=== PATIENT | male | born 1965 | race Caucasian/White ===

== ENCOUNTER 2019-01-22 19:31 | Inpatient (IN) | payer MEDICARE ==
[2019-01-22] MEDS ORDERED: Magnesium Hydroxide (MOM) 30 mL UDC PO PRN (20:53)
[2019-01-22] MEDS ORDERED: GLUCAGON HCl 1 MG KIT IM PRN (21:56)
[2019-01-22] MEDS ORDERED: Dextrose 50% 50 mL Abboject IVP PRN (21:56)
[2019-01-22 22:40] VITALS: BP 148/95
[2019-01-23] MEDS: INSULIN LISPRO SLIDING SCALE 100 UNITS/ML UNIT SUBQ SCH ×4 (06:33→20:51)
[2019-01-23 07:16] LABS: CHOLESTEROL 194 mg/dL (<200); HDL -HIGH DENSITY LIPOPROTEIN 37 mg/dL (23-92); TRIGLYCERIDES 142 mg/dL (<150)
[2019-01-23] MEDS: Multivitamin Tab PO SCH (10:01)
--- NOTE | 2019-01-23 18:34 | History & Physical ---
ADMIT DATE: 01/22/2019 MEDICAL H AND P PATIENT'S IDENTIFICATION: A 53-year-old male. REQUESTING PHYSICIAN: Dr. Abdiaziz Mancera HISTORY OF PRESENT ILLNESS: A 53-year-old male who was admitted from [facility] to [facility] after he presented to Emergency Room for depression with suicidal ideation. PAST MEDICAL HISTORY: Remarkable for: 1. Diabetes mellitus. 2. DJD. 3. Depression. 4. Hypertension. MEDICATIONS: Currently the patient is taking Tylenol, dextrose, Lexapro, glucagon, sliding scale insulin, milk of magnesia, Ambien, multivitamin. ALLERGIES: The patient is not allergic to any medication. SOCIAL HISTORY: The patient is homeless. The patient is still smoking cigarette, alcohol and previous drug use. FAMILY MEDICAL HISTORY: Remarkable for diabetes mellitus. REVIEW OF SYSTEMS: The patient currently denies any headache, blurred vision, double vision, dysphagia, odynophagia, runny nose, stuffy nose, fever, chills, cough, chest pain, shortness of breath, palpitation, dizziness, nausea, vomiting, diarrhea, dysuria, hematuria, hematochezia, and melena. No history of any seizure or syncopal episode. PHYSICAL EXAMINATION: GENERAL: The patient is alert, awake, oriented, lying in the bed without any acute distress. VITAL SIGNS: Temperature 97.8, pulse is 74, respiratory rate is 18, blood pressure 174/100. HEENT: Normocephalic, atraumatic. Extraocular muscles are intact. Tongue more pink and coated. Poor dentition noted. No oral lesion. No exudate. No sinus tenderness. NECK: Supple, no JVD, no hepatojugular reflex. No lymphadenopathy, thyromegaly, or carotid bruit. HEART: Both heart sounds are regular. No S3. No S4. No murmur. CHEST AND LUNGS: Equal in expansion. No expiratory wheezing. ABDOMEN: Soft. No guarding. No rigidity. Liver, spleen not palpable. No palpable mass. EXTREMITIES: No edema. No cyanosis. NEUROLOGIC: Alert, awake, and oriented to time, place, person. 2-12 cranial nerves are intact. Power in upper and lower extremities 5+. Sensation to touch intact. Babinskis in both toes are going down. No cerebral sign. AVAILABLE DIAGNOSTIC DATA: Has been reviewed. CLINICAL IMPRESSION: 1. Diabetes mellitus. 2. Hypertension. 3. Depression. 4. Psychotic disorder. 5. Degenerative joint disease. PLAN: The patient will be placed on metformin 500 mg b.i.d. along with Januvia 100 mg daily. The patient will be placed on losartan for hypertension. We will continue to monitor blood sugar 4 times a day and use sliding scale insulin, glycohemoglobin A1c will be checked as well and we will continue to follow this patient during his stay in the hospital. Psychotic evaluation and management is deferred to psychiatrist. I sincerely thank you Dr. Abdiaziz Mancera for giving me the opportunity to participate in the patient of yours. JOB# [id number]
--- NOTE | 2019-01-23 20:03 | Psychiatric Evaluation ---
DATE OF SERVICE: INITIAL EVALUATION AND MENTAL STATUS EXAM PATIENT'S AGE: 53. SEX: Male. PHYSICIAN: Dr. Mancera. CHIEF COMPLAINT: Suicidal ideations. HISTORY OF PRESENT ILLNESS: The patient is a 53-year-old male, who has been under my care in [facility]. I sent the patient from the Emergency Room because of the patient having suicidal ideation with no specific plans. The patient said that he has been feeling hopeless and helpless and has been hearing voices telling him to kill himself. The patient also has been anxious and nervous and has been having lack of motivations and lack of energy. He also has been abusing methamphetamines and drinking alcohol. PAST PSYCHIATRIC HISTORY: Multiple psychiatric hospitalizations to [facility] under my self-care. PAST MEDICAL HISTORY: The patient has diabetes mellitus and chronic obstructive pulmonary disease. SOCIAL HISTORY: The patient is homeless. He is single, never , and has no children. He abuses methamphetamine and alcohol. He denies legal issues and denies abuse issues. ALLERGIES: No known allergies. MENTAL STATUS EXAMINATION: The patient appears older than his stated age. Disheveled. Anxious. Irritable mood. Sad affect. Thought processes are mainly goal directed. The patient admits to auditory hallucinations, but denies visual hallucinations. The patient admits to be paranoid. The patient admits to suicidal ideations, but denies homicidal ideations. The patient is alert and oriented to time, place, person, and situation. Intact immediate, recent and remote memories. Fair insight and fair judgment. Seems to be of average intelligence based on his verbal ability. ASSESSMENT: PRIMARY DIAGNOSIS: Major depression, severe, recurrent, with psychotic features. SECONDARY DIAGNOSIS: 1. Alcohol use disorder. 2. Methamphetamine use disorder. TREATMENT PLAN: Continue to monitor his behavior and his condition closely. Also, we will monitor for any possible detox. Also, we will start Lexapro and we will adjust the dose. Also, we will work on rehabilitation. ESTIMATED LENGTH OF STAY: 5-7 days. THE PATIENT'S STRENGTHS AND WEAKNESSES: The patient is motivated for treatment and wants to stay clean and sober. Weaknesses are ineffective coping and misuse of leisure time. AFTER DISCHARGE PLAN: Outpatient treatment and followup will continue as an outpatient. CRITERIA FOR DISCHARGE: The patient will not be psychotic and will stabilize psychotropic medications and establish outpatient treatment plans. [facility]# [id number]
[2019-01-24] MEDS: INSULIN LISPRO SLIDING SCALE 100 UNITS/ML UNIT SUBQ SCH ×4 (06:40→20:26)
[2019-01-24] MEDS: Multivitamin Tab PO SCH (08:33)
[2019-01-24 10:28] LABS: BUN - UREA NITROGEN 21 mg/dL (7-25); CARBON DIOXIDE 27.3 mEq/L (21.0-31.0); CHLORIDE 99 mEq/L (98-107); GFR AFRICAN-AMERICAN > 60.0 ml/min (>90); GFR NON AFRICAN-AMERICAN > 60.0 ml/min; GLUCOSE 429 mg/dL (70-105); POTASSIUM SERUM 4.3 mEq/L (3.5-5.1); SODIUM SERUM 134 mEq/L (136-145)
[2019-01-24 10:46] LABS: % BASOPHILS 0.7 % (0.0-2.0); % EOSINOPHILS 1.7 % (0.0-5.0); % LYMPHOCYTES 19.6 % (20.0-50.0); % MONOCYTES 4.8 % (2.0-10.0); % NEUTROPHILS 73.2 % (40.0-80.0); EOSINOPHILE ABSOLUTE 0.1 Th/cmm (0.1-0.4); HEMATOCRIT 48.7 % (41.0-60); LYMPHOCYTE ABSOLUTE 1.1 Th/cmm (1.5-3.0); MEAN CELL VOLUME 94.9 fl (80-99); MEAN CORPUSCULAR HEMOGLOBIN 31.2 pg (26.0-30.0); MEAN CORPUSCULAR HGB CONC 32.8 pg (28.0-36.0); MEAN PLATELET VOLUME 8.4 fl; MONOCYTE ABSOLUTE 0.3 Th/cmm (0.3-1.0); NEUTROPHILE ABSOLUTE 3.9 Th/cmm (1.8-8.0); PLATELET COUNT 246 Th/cmm (150-400); RED BLOOD COUNT 5.13 Mil/cmm (4.30-5.70); RED CELL DISTRIBUTION WIDTH 12.4 % (11.5-20.0); WHITE BLOOD COUNT 5.4 Th/cmm (4.8-10.8)
--- NOTE | 2019-01-24 23:51 | Progress Notes ---
DATE: 01/24/2019 IDENTIFICATION: This is a 53-year-old male. SUBJECTIVE: The patient seen and examined. The patient has longstanding diabetes mellitus. Blood sugars are elevated, ranging from 131-402. The patient is currently on metformin and Januvia. The patient has been noncompliant with his medications being homeless. PHYSICAL EXAMINATION: VITAL SIGNS: Temperature 98.4, pulse 67, respiratory rate 18, blood pressure 175/77. HEENT: No facial asymmetry. Multiple absent teeth noted. NECK: Supple, no JVD. HEART: Regular. CHEST AND LUNGS: Equal in expansion, no expiratory wheezing. ABDOMEN: Soft. EXTREMITIES: No edema. CLINICAL IMPRESSION: 1. Diabetes mellitus. 2. Hypertension. 3. Degenerative joint disease. 4. Psychotic disorder. 5. Homelessness. PLAN: 1. Metformin with Glucophage. 2. Sliding scale insulin. 3. Increase dose of losartan. 4. Monitor blood sugar. 5. Monitor labs. 6. General nursing care. 7. Psych medication. 8. Psych followup. 9. Care plan reviewed and discussed with staff. JOB# [id number]
--- NOTE | 2019-01-25 02:46 | Progress Notes ---
DATE: 01/24/2019 Case was discussed with staff of the patient, reviewed records. This is a 53-year-old male who was admitted on 01/22/2019, he was seen by ____ [facility]. He was referred from the Emergency Room because of suicidal ideation with no specific plan. The patient reports feeling hopeless and helpless, hearing voices telling him to harm himself, has been anxious, nervous. When I talked to the patient, he was isolating himself, unable to participate in meaningful conversation or make safe plan for self-care, unpredictable and impulsive, needing redirection, has been feeling paranoid at times. Continues to be depressed, overwhelmed. He has been on Lexapro 10 mg daily. I will be adding Abilify to his medication to help with his depression as well as episodes of psychosis, though he reports that he is no longer hearing voices to harm himself. ____ I will be adding Abilify. I discussed side effects. We will continue to work with the patient in group therapy, milieu therapy and adjust the medications as needed. JOB# [id number]
[2019-01-25] MEDS: INSULIN LISPRO SLIDING SCALE 100 UNITS/ML UNIT SUBQ SCH ×4 (06:30→20:07)
[2019-01-25] MEDS: Multivitamin Tab PO SCH (09:03)
--- NOTE | 2019-01-25 23:10 | Progress Notes ---
DATE: 01/25/2019 IDENTIFICATION: This is a 53-year-old male. SUBJECTIVE: The patient is seen and examined. Blood sugars are in 200-300 range. The patient is currently on metformin, Glucophage. The patient had a chemistry panel revealed to be normal kidney function with normal hemoglobin. The patient is getting psychiatric treatment at this time. PHYSICAL EXAMINATION: VITAL SIGNS: Temperature 98.3, pulse 80, respiratory rate 18, blood pressure 142/78. HEENT: No facial asymmetry. NECK: Supple. HEART: Regular. LUNGS: Clear. ABDOMEN: Soft. EXTREMITIES: No edema. IMPRESSION: 1. Diabetes mellitus, uncontrolled. 2. Hypertension. 3. Psychotic disorder. PLAN: 1. Increase metformin to 1000 mg twice a day. 2. May need basal insulin therapy. 3. Monitor blood sugar and blood pressure. 4. Psychotic evaluation deferred to psychiatrist. 5. We will continue to follow this patient during the stay in the hospital. JOB# [id number]
[2019-01-26] MEDS: INSULIN LISPRO SLIDING SCALE 100 UNITS/ML UNIT SUBQ SCH ×3 (06:31→20:47)
[2019-01-26] MEDS: Multivitamin Tab PO SCH (09:37)
--- NOTE | 2019-01-26 10:28 | Progress Notes ---
DATE: 01/25/2019 SUBJECTIVE: Chart was reviewed and the patient interviewed. Also discussed the patient's condition with the staff and reviewed the records and labs. The patient is suspicious and is still guarded and withdrawn. The patient also is still in a depressed mood and is still interacting minimally with others. The patient also is complaining of anxiety and is asking for Ativan. Otherwise, the patient is compliant with taking medications and has been participating more in the program and also slept better. He also today denies any intention to harm himself or others. ASSESSMENT: The patient is still depressed, but no suicidal ideations and cooperative with treatment. TREATMENT PLAN: Continue to monitor behavior and condition closely. Also, continue adjusting psychotropic medications and work on behavior modification, also working on his ineffective coping as well as placement. [facility]# [id number]
[2019-01-26] MEDS ORDERED: Insulin Glargine 100 units/ml 10ml Vial SUBQ SCH (21:00)
--- NOTE | 2019-01-27 04:14 | Progress Notes ---
DATE: IDENTIFICATION: A 53-year-old male. SUBJECTIVE: The patient seen and examined. The patient is lying in the bed. No new complaint. Blood sugars are still elevated. PHYSICAL EXAMINATION: VITAL SIGNS: Temperature 96.9, pulse 76, respiratory rate is 20, and blood pressure 142/80. HEENT: No facial asymmetry. Poor dentition noted. NECK: Supple, no JVD. HEART: Regular. LUNGS: Clear. ABDOMEN: Soft. EXTREMITIES: No edema. NEUROLOGIC: Nonfocal. CLINICAL IMPRESSION: 1. Diabetes mellitus, needs better control. 2. Hypertension. 3. Psychotic disorder. 4. Degenerative joint disease. 5. Homelessness. PLAN: 1. Start Lantus insulin as a basal 10 units at bedtime. 2. Continue metformin and Januvia. 3. Sliding scale insulin. 4. Monitor blood pressure. 5. Losartan. 6. Psychiatric evaluation and management deferred to psychiatrist. 7. We will continue to follow this patient during the stay in the hospital. [facility]# [id number]
[2019-01-27] MEDS: INSULIN LISPRO SLIDING SCALE 100 UNITS/ML UNIT SUBQ SCH ×4 (06:49→20:33)
[2019-01-27] MEDS: Multivitamin Tab PO SCH (08:18)
--- NOTE | 2019-01-27 18:59 | Progress Notes ---
DATE: SUBJECTIVE: Chart was reviewed and the patient interviewed. Also discussed the patient's condition with the staff and reviewed records and labs. The patient is still anxious and is still in a depressed mood. The patient also is still irritable and agitated. The patient also still has mood swings and is still suspicious and paranoid. Also thought processes are circumstantial with flight of ideas. Otherwise, the patient has continued to comply with taking medications with no side effects of medications. ASSESSMENT: The patient is still depressed and confused. TREATMENT PLAN: Continue to monitor behavior and condition and continue adjusting psychotropic medications and follow up closely. [facility]# [id number]
[2019-01-27] MEDS: Insulin Glargine 100 units/ml 10ml Vial SUBQ SCH (20:33)
--- NOTE | 2019-01-28 04:34 | Progress Notes ---
DATE: FOLLOWUP VISIT PATIENT'S IDENTIFICATION: This is a 53-year-old male. SUBJECTIVE: No new complaints. OBJECTIVE: VITAL SIGNS: Temperature 96.1, pulse 71, respiratory rate 18, blood pressure 140/90. HEENT: No facial asymmetry. Poor dentition. NECK: Supple, no JVD. HEART: Regular. CHEST AND LUNG: Equal in expansion, no expiratory wheezing. ABDOMEN: Soft. No guarding, no rigidity. Bowel sounds are present. No palpable mass. EXTREMITIES: No edema. IMPRESSION: 1. Diabetes mellitus, uncontrolled. Needs better adjustment. 2. Hypertension. 3. Psychotic disorder. 4. Homelessness. PLAN: In the view of his elevated blood sugar, increase his Lantus insulin to 14 units for now and goal to keep his fasting blood sugar of less than 130. Continue to keep his metformin 1 gram b.i.d. along with Januvia. As far as the blood pressure is concerned, his blood pressure is well controlled with Cozaar. We will continue his losartan for now. Psychiatric evaluation and management is deferred to psychiatrist. Continue to provide diabetic diet as well. Care plan has been reviewed and discussed with staff. JOB# [id number]
--- NOTE | 2019-01-28 04:41 | Progress Notes ---
DATE: 01/27/2019 IDENTIFICATION: This is a 53-year-old male. SUBJECTIVE: The patient seen and examined. The patient is lying in the bed. The patient is a bit lethargic than usual. The patient did have his breakfast. He is scheduled to have paracentesis done. The patient did receive blood transfusion yesterday. PHYSICAL EXAMINATION: VITAL SIGNS: Temperature 96.1, pulse 67, respiratory rate 18, blood pressure 118/74. HEENT: No facial asymmetry. NECK: Supple, no JVD. HEART: Regular. CHEST: Lungs equal in expansion, no expiratory wheezing. ABDOMEN: Soft, palpable ascites noted. Bowel sounds present. EXTREMITIES: +1 edema. NEUROLOGIC: Alert, awake, following commands. AVAILABLE DIAGNOSTIC DATA: White count of 6.2, hemoglobin 9.4, platelet count of 80,000. BUN and creatinine are 42 and 3.0, bicarbonate of 16.6, anion gap of 12.5, sodium 138, potassium 4.1, albumin 2.5. Urine has a 20-50 WBCs, occasional bacteria was seen. The patient did have a serology, which came out hepatitis C antibody positive. Serum toxicology revealed Keppra level of 58.4. CLINICAL IMPRESSION: 1. Encephalopathy, improving. 2. Keppra toxicity. 3. Cirrhosis of liver. 4. Hepatitis C antibody positive. 5. Acute on chronic kidney disease. 6. Metabolic acidosis, better. 7. Hypertension. 8. Gastropathy. 9. Status post blood transfusion for severe anemia. 10. Pancytopenia. 11. History of colon cancer. 12. Debility. 13. Spontaneous bacterial peritonitis. PLAN: In the view of his acuity of his illness, the patient may get benefit with the long-term acute care, which I did discuss with the patient's daughter over the phone. After lengthy discussion, the patient's daughter does agree to proceed with LTAC evaluation and transfer. The patient will receive IV antibiotic for spontaneous bacterial peritonitis. Monitor his electrolytes. Monitor his blood count and transfuse as needed. Further treatment for his underlying medical problem along with increasing endurance by providing PT and OT. He is an ideal candidate for LTAC. The patient will have LTAC evaluation and transfer this patient today, which I have discussed with rifle case repairer as well. JOB# [id number]
[2019-01-28] MEDS: INSULIN LISPRO SLIDING SCALE 100 UNITS/ML UNIT SUBQ SCH ×4 (06:36→21:36)
--- NOTE | 2019-01-28 06:41 | Progress Notes ---
DATE: SUBJECTIVE: Chart was reviewed and the patient interviewed. Also discussed the patient's condition with the staff and reviewed records and labs. The patient is still easily agitated and he is still suspicious and paranoid. The patient also is still restless and still has severe mood swings and wants to be left alone and not to be bothered. The patient also is still disheveled and personal hygiene is still poor. Also, during interview, the patient seems to be responding. ASSESSMENT: The patient is still agitated and in irritable mood. TREATMENT PLAN: Continue monitoring his behavior and his condition and will continue working on his ineffective coping and his depression as well as psychosis. Also, we will increase Abilify to 10 mg every day and continue to follow up. JOB# [id number]
[2019-01-28] MEDS: Multivitamin Tab PO SCH (08:25)
[2019-01-28] MEDS: Insulin Glargine 100 units/ml 10ml Vial SUBQ SCH (21:37)
--- NOTE | 2019-01-28 23:51 | Progress Notes ---
DATE: 01/28/[address] Mancera. SUBJECTIVE: This is a well-known case to me. I have seen him before. The patient continues to be easily agitated, suspicious, paranoid, isolating himself, restless, having mood swings, preoccupied with discharge. He continues to be in irritable mood. PLAN: To increase zyprexa 10 mg at bedtime. No side effects with the medication, no sedation, no nausea, and no extrapyramidal symptoms. We will continue to work with the patient in group therapy, milieu therapy, and adjust the medications as needed. JOB# [id number] SOPHIE
[2019-01-29] MEDS: INSULIN LISPRO SLIDING SCALE 100 UNITS/ML UNIT SUBQ SCH ×4 (06:38→21:27)
[2019-01-29] MEDS: Multivitamin Tab PO SCH (09:14)
[2019-01-29] MEDS: Insulin Glargine 100 units/ml 10ml Vial SUBQ SCH (21:32)
--- NOTE | 2019-01-29 23:48 | Progress Notes ---
DATE: 01/29/2019 SUBJECTIVE: Case was discussed with staff of the patient, reviewed records. The patient reports that Abilify makes him sleepy, he takes in the morning, I will change it to bedtime. The patient continues to isolate himself. He continues to be suspicious and paranoid. He continues to have poor insight. Mood is irritable. No other side effects with the medication ____ sedation. I will be changing Abilify to 10 mg at bedtime. We will continue to work with the patient in group therapy, milieu therapy, and adjust the medications as needed. JOB# [id number]
[2019-01-30] MEDS: INSULIN LISPRO SLIDING SCALE 100 UNITS/ML UNIT SUBQ SCH ×5 (06:46→21:00)
[2019-01-30] MEDS: Multivitamin Tab PO SCH (08:28)
[2019-01-30] MEDS: Maalox 30 mL Cup PO PRN (14:44)
[2019-01-30] MEDS: Insulin Glargine 100 units/ml 10ml Vial SUBQ SCH (22:17)
--- NOTE | 2019-01-31 05:21 | Progress Notes ---
DATE: 01/30/2019 SUBJECTIVE: Chart reviewed and the patient interviewed. Also discussed the patient's condition with the staff and reviewed records and labs. The patient is still withdrawn and depressed and is still suspicious and paranoid. The patient also is still interacting minimally with others. The patient also still has mood swings. Otherwise, the patient is guarded and he is compliant with taking his medications with no side effects of medications. ASSESSMENT: The patient is still suspicious and paranoid and anxious. TREATMENT PLAN: Continue to monitor his behavior and his condition closely and continue adjusting psychotropic medications and work on behavioral modification as well as placement issue. JOB# [id number]
[2019-01-31] MEDS: INSULIN LISPRO SLIDING SCALE 100 UNITS/ML UNIT SUBQ SCH ×4 (06:34→20:32)
[2019-01-31] MEDS: Multivitamin Tab PO SCH (08:18)
--- NOTE | 2019-01-31 18:14 | Discharge Summary ---
DATE OF DISCHARGE: 01/31/2019 PATIENT'S AGE: 53, male. PHYSICIAN: Abdiaziz Mancera MD FINAL DIAGNOSIS AND PRIMARY DIAGNOSIS: Major depression, severe, recurrent, with psychotic features. SECONDARY DIAGNOSES: 1. Alcohol use disorder, 2. Methamphetamine use disorder. MEDICAL DIAGNOSES: 1. Diabetes mellitus. 2. Hypertension. 3. Degenerative joint disease. REASON FOR HOSPITALIZATION: The patient is a 53-year-old homeless man who was admitted from [facility] Emergency Room because of his feeling hopeless and helpless and because of depression and also was hearing voices telling him to kill himself. The patient also is abusing methamphetamine and also drinking alcohol. HOSPITAL COURSE: The patient continued to be severely depressed. The patient was started on Abilify and the dose adjusted to 10 mg every day as well as also Lexapro and dose adjusted to 10 mg every day. Also, blood sugar was monitored closely. The patient was homeless and the placement was an issue. Gradually, the patient's affect was brighter. The patient was less irritable and less agitated. Also, was not suicidal or homicidal. The patient was discharged from the hospital and was accepted by [facility] to continue his rehabilitation and physical treatment of his blood sugar and degenerative joint disease. Physical examination of the patient was as mentioned under final diagnosis. Blood workup was also monitored closely. AFTER DISCHARGE PLANS: The patient discharged from the hospital and went to [facility] with plans for outpatient treatment there. EXPECTED OUTCOME AFTER DISCHARGE: Fair if the patient continued to take his psychotropic medications, and if he continues to follow up with discharge plans. [facility]# [id number]
[2019-01-31] MEDS: Insulin Glargine 100 units/ml 10ml Vial SUBQ SCH (20:32)
[2019-02-01] MEDS: INSULIN LISPRO SLIDING SCALE 100 UNITS/ML UNIT SUBQ SCH ×2 (06:34→12:18)
[2019-02-01] MEDS: Multivitamin Tab PO SCH (09:05)
[2019-02-01] MEDS: Maalox 30 mL Cup PO PRN (14:45)
--- NOTE | 2019-02-02 03:06 | Progress Notes ---
DATE: 02/01/2019 SUBJECTIVE: Chart was reviewed and the patient interviewed. Also discussed the patient's condition with the staff and reviewed records and labs. The patient is still severely depressed and he is still withdrawn. The patient also is interacting minimally with others. The patient also still has difficulty making up decision as far as his discharge and the patient was supposed to be discharged yesterday, but then the patient said that he wants to live with his sister. The patient was homeless prior to his hospitalization and it is not clear if the patient can live with his sister or not. Also, because of being homeless, trying to coordinate and see if the patient will be able to go there. On the other hand, the patient continued to comply with taking his medications. The patient denies any side effects of medications. ASSESSMENT: The patient is still depressed and still has difficulty making a decision and also high risk relapse. TREATMENT PLAN: Continue to monitor his behavior and his condition closely. Also, continue to work on discharge plans and discussed with the patient and complex case manager. The patient is going to a SNF to continue his rehabilitation and also to have a place for him to live rather than being homeless until further recommendations. At the same time, we will continue to work on adjusting medications and continue to follow up. [facility]# [id number]
--- NOTE | 2019-02-02 11:15 | Discharge Summary ---
DATE OF DISCHARGE: 02/01/2019 PATIENT'S AGE: 53. SEX: Male. PHYSICIAN: Dr. Mancera. FINAL DIAGNOSIS: Major depression, severe, recurrent, with psychotic features. SECONDARY DIAGNOSES: 1. Alcohol use disorder, 2. Methamphetamine use disorder. Discharge summary was done on January 22 and discharge job number is [id number]. The patient was not discharged on that date and discharged in the next day. No changes in her mental status or any of the previous dictations. JOB# [id number]
== END 2019-02-01 15:05 | DRG 885 ==
LOC: GERO 19:31
PROVIDERS: ADMIT Psychiatry & Neurology Psychiatry; ATTEND Psychiatry & Neurology Psychiatry
DX: F33.3 Major depressive disorder, recurrent, severe with psychotic symptoms (principal); N18.9 Chronic kidney disease, unspecified; B19.20 Unspecified viral hepatitis C without hepatic coma; K65.2 Spontaneous bacterial peritonitis; F10.19 Alcohol abuse with unspecified alcohol-induced disorder; G93.40 Encephalopathy, unspecified; E87.2 Acidosis; D61.818 Other pancytopenia; F15.90 Other stimulant use, unspecified, uncomplicated; M19.90 Unspecified osteoarthritis, unspecified site; F41.9 Anxiety disorder, unspecified; J44.9 Chronic obstructive pulmonary disease, unspecified; T42.6X5A Adverse effect of other antiepileptic and sedative-hypnotic drugs, initial encounter; Y92.89 Other specified places as the place of occurrence of the external cause; K74.60 Unspecified cirrhosis of liver; I12.9 Hypertensive chronic kidney disease with stage 1 through stage 4 chronic kidney disease, or unspecified chronic kidney disease; K31.9 Disease of stomach and duodenum, unspecified; E11.22 Type 2 diabetes mellitus with diabetic chronic kidney disease; Z59.0 Homelessness
CPT/HCPCS: 36415-UA; 80048-TC; 80061-TC; 82948-90; 83036-90; 85025-TC; G0410; J1815; Z7610